=== PATIENT | male | born 1980 | race African-American/Black ===

== ENCOUNTER 2021-09-01 05:59 | Emergency (ER) | payer SELFPAY ==
[~2021-09-01] VITALS: Ht 172.7 cm; Wt 73.9 kg
[2021-09-01] MEDS ORDERED: LIDOCAINE HCL-MPF 1% 2ML VIAL ONE (07:43)
[2021-09-01] MEDS ORDERED: LIDOCAINE HCL 1% 10 ML VIAL ONE (07:45)
[2021-09-01 07:57] LABS: BASOPHILS % (AUTO) 0.3 % (0.0-5.0); EOSINOPHILS % (AUTO) 1.9 % (0.0-8.0); HEMATOCRIT 39.6 % (42-54); LYMPHOCYTES % (AUTO) 11.6 % (21.0-51.0); MEAN CORPUSCULAR HEMOGLOBIN 31.2 pg (27.0-33.0); MEAN CORPUSCULAR HGB CONC 33.6 g/dL (32.0-36.0); MONOCYTES % (AUTO) 8.4 % (3.0-13.0); NEUTROPHILS % (AUTO) 77.5 % (40.0-77.0); NUCLEATED RED BLOOD CELLS 0.1 % (0.0-0.19); PLATELET COUNT (AUTO) 220 K/uL (130-400); RED BLOOD CELL COUNT(AUTO) 4.26 MIL/uL (4.50-6.20); WHITE BLOOD COUNT (AUTO) 13.5 K/uL (4.8-10.8)
[2021-09-01 08:23] LABS: ALBUMIN 2.9 g/dL (3.5-5.0); BILIRUBIN,TOTAL 0.7 mg/dL (0.2-1.0); POTASSIUM 3.5 mmol/L (3.5-5.1); TOTAL PROTEIN, SERUM 5.8 g/dL (6.0-8.3)
[2021-09-01] MEDS ORDERED: CLINDAMYCIN IVPB 600MG/50ML 50 ML IV SCH (08:30)
[2021-09-01] MEDS ORDERED: ACET-66 PO (10:10)
[2021-09-01] MEDS ORDERED: NAPR-1023 PO (10:10)
[2021-09-01] MEDS ORDERED: CLIN-141 PO (10:10)
[2021-09-01 10:28] VITALS: BP 130/82
== END 2021-09-01 10:41 | disposition home or self-care (01) ==
LOC: EDH 05:59
DX: K05.219 Aggressive periodontitis, localized, unspecified severity (principal); Z79.1 Long term (current) use of non-steroidal anti-inflammatories (NSAID)
CPT/HCPCS: 36415; 80053; 85025; 96365; 99284; J3490 ×2